=== PATIENT | female | born 1995 | race Caucasian/White ===

== ENCOUNTER 2016-08-14 17:30 | Emergency (ER) | payer BC ==
[2016-08-14 17:45] VITALS: BP 121/70
--- NOTE | 2016-08-14 18:34 | UC ---
Ear Complaint HPI - HPI Summary HPI Summary: 21 YO FEMALE WITH LEFT OTALGIA SINCE THIS AM SINUS CONGESTION X DAYS HX OM PETs CHILD - History of Current Complaint Chief Complaint: UCEar Stated Complaint: EAR ACHE Time Seen by Provider: 08/14/16 18:28 Hx Obtained From: Patient Hx Last Menstrual Period: 07/23/16 Onset/Duration: Gradual Onset, Lasting Hours Severity Initially: Mild Severity Currently: Mild Pain Intensity: 4 Pain Scale Used: 0-10 Numeric Associated Signs/Symptoms: Positive: Hearing Loss, URI Symptoms Related History: Prior ENT Surgery - Allergies/Home Medications Allergies/Adverse Reactions: Allergies Allergy/AdvReac Type Severity Reaction Status Date / Time No Known Allergies Allergy Verified 08/14/16 17:40 PMH/Surg Hx/FS Hx/Imm Hx Previously Healthy: Yes - Surgical History Surgical History: Yes Surgery Procedure, Year, and Place: tubes in ears as child - Family History Known Family History: Positive: Hypertension, Diabetes - Social History Alcohol Use: None Substance Use Type: None Smoking Status (MU): Never Smoked Tobacco - Immunization History Most Recent Influenza Vaccination: fall 2015 Vaccination Up to Date: Yes Review of Systems Constitutional: Negative Skin: Negative Eyes: Negative ENT: Ear Ache, Nasal Discharge Respiratory: Negative Cardiovascular: Negative Gastrointestinal: Negative Genitourinary: Negative Motor: Negative Neurovascular: Negative Musculoskeletal: Negative Neurological: Negative Psychological: Negative All Other Systems Reviewed And Are Negative: Yes Physical Exam Triage Information Reviewed: Yes Appearance: Well-Appearing, No Pain Distress, Well-Nourished Vital Signs: Initial Vital Signs Temp 98.3 F 08/14/16 17:40 Pulse 72 08/14/16 17:40 Resp 16 08/14/16 17:40 BP 121/70 08/14/16 17:40 Pulse Ox 100 08/14/16 17:40 Eye Exam: Normal Eyes: Positive: Conjunctiva Clear ENT: Positive: Nasal congestion, Nasal drainage, TM bulging - L, TM red - L. Negative: Hearing grossly normal - DECREASED HEARING LEFT EAR, Tonsillar exudate , Trismus, Muffled/hoarse voice Neck: Positive: Supple, Nontender Respiratory: Positive: Chest non-tender, Lungs clear, Normal breath sounds Cardiovascular: Positive: RRR, No Murmur, Pulses Normal Musculoskeletal: Positive: ROM Intact, No Edema Neurological Exam: Normal Neurological: Positive: Alert Psychological Exam: Normal Skin Exam: Normal Ear Complaint Course/Dx - Differential Dx/Diagnosis Provider Diagnoses: LEFT OTITIS MEDIA Discharge - Discharge Plan Condition: Stable Disposition: HOME Prescriptions: Amoxicillin SUSP* [Amoxicillin 400 MG/5 ML SUSP*] 800 mg PO BID #200 bottle Patient Education Materials: Otitis Media (ED) Referrals: Reji Don MD [Primary Care Provider] - 3 Days (IF NOT IMPROVED) Additional Instructions: IF MAY TAKE A COUPLE OF WEEKS FOR YOUR HEARING TO RETURN TO NORMAL TYLENOL OR ADVIL IF NEEDED FOR PAIN
== END 2016-08-14 18:40 | disposition home or self-care (01) ==
LOC: UCEAST 17:30
DX: H66.92 Otitis media, unspecified, left ear (principal)
CPT/HCPCS: 99212; G0463

== ENCOUNTER 2017-12-17 10:16 | Emergency (ER) | payer BC ==
[2017-12-17 10:25] VITALS: BP 118/86
--- NOTE | 2017-12-17 10:51 | ED ---
Throat Pain/Nasal Congestion - HPI Summary HPI Summary: Patient presents with URI symptoms 1.5 weeks. She reports it started as a sore throat and then moved into her left ear. Had left ear pain which has resolved however sore throat persists. She now feels a cough moving into her chest. Denies fevers, chills, nausea, vomiting, rash, headache or neck stiffness. Her son was diagnosed with strep prior to her symptoms starting. She's been trying to treat this with Cepacol and as a result has developed some loose stools. Otherwise appetite is good but it is painful to swallow. She does not like to take medication and has not tried acetaminophen or ibuprofen for her throat pain. She has tried salt gargles in the morning which seems to help. - History of Current Complaint Chief Complaint: UCRespiratory Time Seen by Provider: 12/17/17 10:29 Hx Obtained From: Patient - Allergies/Home Medications Allergies/Adverse Reactions: Allergies Allergy/AdvReac Type Severity Reaction Status Date / Time No Known Allergies Allergy Verified 12/17/17 10:25 Home Medications: Home Medications NK [No Home Medications Reported] 12/17/17 [History Confirmed 12/17/17] PMH/Surg Hx/FS Hx/Imm Hx Previously Healthy: Yes EENT History: Reports: Other - recurrent ear issues - h/o myringotomy as a child - Surgical History Surgery Procedure, Year, and Place: tubes in ears as child Infectious Disease History: No Infectious Disease History: Denies: Traveled Outside the [place] in Last 30 Days - Family History Known Family History: Positive: Hypertension, Diabetes - Social History Occupation: Employed Full-time Lives: With Family Alcohol Use: Occasionally Hx Substance Use: No Substance Use Type: Reports: None Hx Tobacco Use: No Smoking Status (MU): Never Smoked Tobacco Review of Systems Constitutional: Negative Negative: Fever, Chills, Fatigue Negative: Drainage, Erythema Positive: Sore Throat, Nasal Discharge - PND Cardiovascular: Negative Positive: Cough - mild. Negative: Shortness Of Breath Gastrointestinal: Negative Positive: no symptoms reported Musculoskeletal: Negative Skin: Negative Neurological: Negative Psychological: Normal All Other Systems Reviewed And Are Negative: Yes Physical Exam Triage Information Reviewed: Yes Vital Signs On Initial Exam: Initial Vitals Temp Pulse Resp BP Pulse Ox 97.6 F 77 18 118/86 100 12/17/17 10:22 12/17/17 10:22 12/17/17 10:22 12/17/17 10:22 12/17/17 10:22 Vital Signs Reviewed: Yes Appearance: Positive: Well-Appearing, No Pain Distress, Well-Nourished Skin: Positive: Warm, Skin Color Reflects Adequate Perfusion, Dry - no rash Head/Face: Positive: Normal Head/Face Inspection - SInuses NTTP Eyes: Positive: Normal, EOMI, Conjunctiva Clear. Negative: Conjunctiva Inflammed, Discharge ENT: Positive: Hearing grossly normal, Pharyngeal erythema - mild erythema, tonsils +2-3, cryptic, scant exudate, Nasal congestion, TMs normal, Tonsillar swelling, Uvula midline. Negative: Trismus, Muffled voice, Hoarse voice, Sinus tenderness Dental: Negative: Abscess @ Neck: Positive: Supple, Nontender, Enlarged Nodes @ - "FEELS BETTER" WHEN THESE ARE PALPATED Respiratory/Lung Sounds: Positive: Clear to Auscultation, Breath Sounds Present. Negative: Rales, Rhonchi, Stridor, Tracheal Deviation, Wheezes Cardiovascular: Positive: Normal, RRR, S1, S2. Negative: Murmur, Rub Abdomen Description: Positive: Nontender, No Organomegaly, Soft Bowel Sounds: Positive: Present Musculoskeletal: Positive: Normal, Strength/ROM Intact Neurological: Positive: Normal, Sensory/Motor Intact, Alert, Oriented to Person Place, Time, CN Intact II-III Psychiatric: Positive: Normal Diagnostics - Vital Signs Vital Signs Temp Pulse Resp BP Pulse Ox 12/17/17 10:22 97.6 F 77 18 118/86 100 - Laboratory Lab Statement: Any lab studies that have been ordered have been reviewed, and results considered in the medical decision making process. EENT Course/Dx - Course Course Of Treatment: Rapid strep (-). Suspect viral URI w/ PND. Will offer supportive care. If persists, may see PCP for further evaluation, possibly mono testing although low suspicion here today. Reviewed danger s/sx of when to return to ED. Pt agrees w/ plan. - Diagnoses Provider Diagnoses: URI, acute Discharge - Sign-Out/Discharge Documenting (check all that apply): Patient Departure All imaging exams completed and their final reports reviewed: No Studies - Discharge Plan Condition: Stable Disposition: HOME Patient Education Materials: Upper Respiratory Infection (ED), Postnasal Drip ( DC) Referrals: Reji Don MD [Primary Care Provider] - Additional Instructions: You appear to have a viral URI. There may be a component of allergies as well. You were referred to ENT for recurrent ear infections - followup as directed. In the meantime, you may try the following to aid in comfort of your symptoms: Nasal wash (netti pot or saline spray) to reduce post nasal drip causing sore throat and cough Salt water throat gargles 2 x day Drink you body weight in ounces of water every day Sleep 8+ hours per night Avoid Dairy and sugar Hot herbal/decaf tea with lemon & honey Chicken broth (preferably organic, free range chicken) Keep home temperature at 68F or less to reduce dryness Use cough drops/throat lozenges Try a facial steam with or without eucalyptus essential oil or Tee's Vapor rub for congestion Avoid smoke, candles, perfumes, colognes, scented soaps/detergents , air fresheners and cleaning chemicals as these can cause airway irritation and trigger coughing Additionally for throat pain, you may try acetaminophen and/or ibuprofen. If mucous continues to be an issue you may also try an antihistamine before bed to reduce post nasal drip over night (ie. benadryl). Consider starting a multivitamin *If worse, follow-up with PCP *If difficulty breathing or swallowing, go to the ED - Billing Disposition and Condition Condition: STABLE Disposition: Home
== END 2017-12-17 11:07 | disposition home or self-care (01) ==
LOC: UCEAST 10:16
DX: J06.9 Acute upper respiratory infection, unspecified (principal)
CPT/HCPCS: 87651; 99211; G0463

== ENCOUNTER 2018-10-20 09:37 | Emergency (ER) | payer BC ==
[2018-10-20 10:39] VITALS: BP 104/70
--- NOTE | 2018-10-20 10:44 | UC ---
Abdominal Pain Female HPI - HPI Summary HPI Summary: Today was walking a dog that pulled hard and she fell. L upper leg pain near lateral aspect of L knee. Pain w/ bearing weight but able to walk. Feels slight instability but has been using crutches which helps. Does not know any bruising or swelling. - History of Current Complaint Chief Complaint: UCLowerExtremity Stated Complaint: LEG INJURY Time Seen by Provider: 10/20/18 09:41 Hx Obtained From: Patient Hx Last Menstrual Period: 11/23/17 Onset/Duration: Sudden Onset Pain Intensity: 0 Pain Scale Used: 0-10 Numeric Aggravating Factor(s): Movement Alleviating Factor(s): Position Allergies/Adverse Reactions: Allergies Allergy/AdvReac Type Severity Reaction Status Date / Time No Known Allergies Allergy Verified 10/20/18 10:39 Home Medications: Home Medications Vitamin TAB* 1 tab PO DAILY 10/20/18 [History Confirmed 10/20/18] PMH/Surg Hx/FS Hx/Imm Hx - Additional Past Medical History Additional PMH: Previously Healthy: Yes - Surgical History Surgical History: Yes Surgery Procedure, Year, and Place: tubes in ears as child - Family History Known Family History: Positive: Hypertension, Diabetes - Social History Alcohol Use: Occasionally Substance Use Type: None Smoking Status (MU): Never Smoked Tobacco - Immunization History Most Recent Influenza Vaccination: fall 2015 Vaccination Up to Date: Yes Review of Systems All Other Systems Reviewed And Are Negative: Yes Constitutional: Negative: Fever, Chills Skin: Negative: Bruising, Other - DENIES REDNESS Respiratory: Positive: Negative Cardiovascular: Positive: Negative Musculoskeletal: Positive: Arthralgia - L KNEE/UPPER LEG PAIN, Calf Tenderness - UPPER, Decreased ROM. Negative: Edema, Myalgia Neurological: Negative: Weakness, Paresthesia, Numbness Physical Exam Triage Information Reviewed: Yes Appearance: Well-Appearing, Other: - HAS CRUTCHES AND WHEELCHAIR Vital Signs: Initial Vital Signs Temp 97.9 F 10/20/18 10:31 Pulse 94 10/20/18 10:31 Resp 16 10/20/18 10:31 BP 104/70 10/20/18 10:31 Pulse Ox 99 10/20/18 10:31 Vital Signs Reviewed: Yes Musculoskeletal: Positive: Strength Intact - L KNEE, ROM Intact - L KNEE, No Edema - LOWER EXTREMITY Neurological: Positive: Alert, Muscle Tone Normal Skin: Negative: Other - NO BRUISING NOTED Abd Pain Female Course/Dx - Course Course Of Treatment: Left knee strain and feeling some instability after a fall while she was walking a dog that pulled her. Able to consult with Dr. Mitchell and it was thought after he helped evaluate her that calf rest with a CAM boot and staying off her feet with crutches would be helpful until she sees Ortho. It was not thought that there was a fx so no imaging, her being complicates things. - Differential Dx/Diagnosis Differential Diagnosis: Other Provider Diagnosis: Left knee pain Discharge - Sign-Out/Discharge Documenting (check all that apply): Patient Departure All imaging exams completed and their final reports reviewed: No Studies - Discharge Plan Condition: Good Disposition: HOME Patient Education Materials: Knee Pain (ED) Referrals: Juarez Mitchell MD [Emergency Provider] - Additional Instructions: Please follow up with Orthopedics to be evaluated for the pain and instability. It is good to remain off your feet using the crutches. Tylenol can be taken for the pain. - Billing Disposition and Condition Condition: GOOD Disposition: Home - Attestation Statements Provider Attestation: I was available for consult. This patient was seen by the WINTER. I saw and examined the patient. Pain is mainly reported in the lateral aspect of the proximal calf. Upon exam she has no significant tenderness even upon deep palpation in the area of pain. Has full range of motion at knee and ankle. She was able to be her weight on the left side and walk. Symptoms appear consistent with proximal left calf strain after she was pulled by the dog.We discussed conservative management with cam boot/crutches and hold off imaging since she is and follow up with orthopedics. She expressed understanding. -Juarez Mitchell MD
== END 2018-10-20 11:30 | disposition home or self-care (01) ==
LOC: UCEAST 09:37
DX: M25.562 Pain in left knee (principal)
CPT/HCPCS: 99212; G0463

== ENCOUNTER 2019-01-18 09:24 | Inpatient (IN) | payer BC ==
[2019-01-18] MEDS ORDERED: Buffered Lidocaine 1% SYRIN* 1 ML/SYRINGE INTRADERM ONE (10:10)
[2019-01-18] MEDS ORDERED: Lactated Ringers 1000 ML Bag* 1,000 ML IV ONE ×2 (10:10→19:29)
--- NOTE | 2019-01-18 10:20 | HP ---
General Information - Reason for Visit Pt here for elective term induction of labor due to prolonged prodromal labor. - General Information Maternal Age: 24 Grav: 3 Para: 1 SAB: 1 IEA: 0 Estimated Due Date: 01/17/19 Determined By: LMP Maternal Blood Type and Rh: A Positive - Results this Serology/RPR Result: Non-Reactive Rubella Result: Immune HBsAg Result: Negative HIV Result: Negative GBS Culture Result: Negative Past Medical History Delivery History: See Records Pertinent Past Medical History: Non-Contributory Pertinent Past Surgical History: None Pertinent Family History: Non-Contributory - Antepartal Records Antepartal Records: Reviewed, Uncomplicated Review of Systems Constitutional: Comfortable CV Complaint: No Respiratory: Shortness of Breath: No Gastrointestinal: No Nausea/Vomiting, Normal Bowel Movement Genitourinary: No Dysuria, No Bleeding, No Leaking Fluid Musculoskeletal: No Epigastric Pain, Contractions Neurological: No Headache, No Visual Changes Movement: Normal Exam Allergies/Adverse Reactions: Allergies No Known Allergies Allergy (Verified 01/18/19 07:47) T-98.2, P-98, R-20, BP- 110/74, O2-97% - Measurements Height: 5 ft 4 in Weight: 83.007 kg Weight in lbs: 183.724068 Body Mass Index (BMI): 31.4 Pre- Weight: 68.039 kg Weight Gained This : 33 lbs and 0 ozs - Exam Breast: Breast Exam Deferred CVA: No CVA Tenderness Extremities: Edema - trace pedal edema Heart: Normal Rhythm/Heart Sounds HEENT: No Significant Findings Lungs: Clear Bilaterally Rectal: Rectal Exam Deferred Reflexes: DTR 2+ Thyroid: No Thyromegaly - Abdominal Exam Abdomen Exam: Non-Tender, Fundal Height Consistent with Dates - Ultrasound/Biophysical Profile Ultrasound Status: Not Done Targeted Exam Findings See L&D Outpatient Visit Provider Note for Findings: N/A Estimated Weight: 7.5# Cervical Exam: 2cm Effacement: 50% Station: -2 Presenting Part: Vertex Membrane Status: Intact Bleeding/Discharge: None EFM Findings - External Monitor Findings Baseline Heart Rate: 135 External Monitor Findings: Accelerations Present, No Pattern of Variable or Late Decelerations, Variability Moderate, Baseline Stable Contractions: None Assessment/Plan - Assessment 23 year old at 40 1/7 weeks gestation, here for elective IOL in context of prolonged prodromal labor - Plan Plan: Induction, Admit - Anticipate Vaginal Delivery - Date/Time of Admission Date of Admission: 01/18/19 Time of Admission: 10:08
[2019-01-18 10:56] LABS: ABS Eosinophils 0.1 10^3/ul (0-0.6); ABS Lymphocytes 2.1 10^3/ul (1.0-4.8); ABS Monocytes 0.7 10^3/ul (0-0.8); ABS Neutrophils 8.8 10^3/ul (1.5-7.7); Eosinophil % 0.7 %; Hematocrit 41 % (35-47); Hemoglobin 13.5 g/dL (12.0-16.0); Lymphocyte % 18.1 %; Mean Corpuscular HGB Conc 33 g/dL (31-36); Mean Corpuscular Hemoglobin 29 pg (27-31); Mean Corpuscular Volume 85 fL (80-97); Mean Platelet Volume 8.9 fL (7.4-10.4); Platelet Count 289 10^3/uL (150-450); Red Blood Count 4.75 10^6 /uL (3.70-4.87); Red Cell Distribution Width 14 % (10-15); White Blood Count 11.7 10^3/uL (3.5-10.8)
[2019-01-18] MEDS ORDERED: Oxytocin in LR* 20 UNITS/1,000 ML BAG IVPB SCH (11:00)
[2019-01-18] MEDS ORDERED: Lactated Ringers 1000 ML Bag* 1,000 ML IV SCH ×3 (11:00→20:00)
[2019-01-18 11:10] LABS: Urine Benzodiazepine Screen None Detected (None Detect); Urine Opiates Screen None Detected (None Detect)
--- NOTE | 2019-01-18 12:53 | PN ---
Progress Note - Progress Note Date of Service: 01/18/19 SOAP: Subjective: Pt comfortable, reports ctx feel more frequent, but not stronger. Objective: FHR: Baseline 125/ moderate variability/ + accels/ no decels UCs: 2-4 minutes, mild Pitocin at 6 mu/min Assessment: 24 year old at 40 1/7 weeks gestation undergoing elective IOL. Plan: Continue Pitocin IOL. Recheck cervix in a few hours or sooner as needed.
--- NOTE | 2019-01-18 15:09 | PN ---
Progress Note - Progress Note Date of Service: 01/18/19 SOAP: Subjective: Pt feeling ctx stronger, ambulating in halls. Coping well. Objective: Pitocin at 8mu/min FHR: Baseline 135/ moderate variability/ + accels, tracing intermittent d/t pt ambulation UCs: 2-3 minutes, mild to moderate BP: 99/66, T: 98.0 Assessment: Pt appears to be getting into more active labor pattern. Membranes intact. No evidence of acidemia. Plan: Continue Pitocin augmentation. Recheck in 2-3 hours or PRN.
--- NOTE | 2019-01-18 17:17 | PN ---
Progress Note - Progress Note Date of Service: 01/18/19 SOAP: Subjective: Pt much more uncomfortable, coping well Objective: Cervix: 4cm/ 80%/ -1 FHR: Baseline 135/ moderate variability/ + accels/ no decels UCs: 2-3 minutes Pitocin reduced from 8 to 6 Assessment: Pt getting into active labor, making good progress. No evidence of acidemia or chorioamnionitis. Plan: Continue Pitocin induction. Discussed options for pain relief, pt elects to try the tub at this time. Anticipate progression to .
--- NOTE | 2019-01-18 17:45 | PN ---
Progress Note - Progress Note Date of Service: 01/18/19 Note: Pt tried tub, did not find it helpful. Requests to try nitrous oxide. Risks and benefits discussed with pt. Order placed.
[2019-01-18] MEDS ORDERED: OBEPIDURAL* 250 ML EPIDURAL ONE (18:36)
--- NOTE | 2019-01-18 18:54 | PN ---
Progress Note - Progress Note Date of Service: 01/18/19 Note: Pt reports nitrous oxide not sufficient for pain management. Requests epidural. After reviewing risks and benefits of epidural, anesthesiologist paged. Dr. Durham at bedside at this time to place epidural.
[2019-01-18] MEDS ORDERED: Phenylephrine 40 MCG/ML SYRINGE ONE (19:04)
[2019-01-18] MEDS ORDERED: Famotidine TAB* 20 MG PO PRN (19:29)
[2019-01-18] MEDS ORDERED: Sodium Citrate/Citric Acid* 15 ML UDC PO PRN (19:29)
[2019-01-18] MEDS ORDERED: Phenylephrine 40 MCG/ML SYRINGE IV PUSH PRN ×2 (19:29)
[2019-01-18] MEDS ORDERED: Lactated Ringers 1000 ML Bag* 500 ML IV PRN ×2 (19:29)
[2019-01-18] MEDS ORDERED: OBEPIDURAL* 250 ML EPIDURAL SCH (20:00)
--- NOTE | 2019-01-18 21:44 | PN ---
Progress Note - Progress Note Date of Service: 01/18/19 SOAP: Subjective: Pt comfortable with epidural. Resting in bed, and family at bedside. Objective: SROM at 2100 to clear fluid FHR: had some late decelerations secondary to maternal hypotension following epidural initiation; since then has improved. Current baseline 135/ moderate variability/ no accels/ no decels UCs: Q 2-3 minutes Pitocin turned off during epidural placement, has not been restarted Assessment: Pt appears to be making good progress. Comfortable with epidural. FHR Category I but has not had any accelerations in a while. Plan: Try position changes to see if improved FHR reactivity. Restart Pitocin as needed if ctx space out or progress stalls. Anticipate .
[2019-01-19] MEDS ORDERED: Witch Hazel PAD* JAR TOPICAL PRN (01:01)
[2019-01-19] MEDS ORDERED: Dibucaine 1% 28.35 GM TUBE PR PRN (01:01)
[2019-01-19] MEDS ORDERED: Glycerin ADULT SUPP PR PRN (01:01)
[2019-01-19] MEDS ORDERED: Lactated Ringers 1000 ML Bag* 1,000 ML IV SCH (02:00)
[2019-01-19] MEDS ORDERED: Oxytocin in LR* 20 UNITS/1,000 ML BAG IVPB SCH (02:00)
[2019-01-19] MEDS: Acetaminophen TAB* 325 MG PO PRN ×3 (08:45→22:57)
[2019-01-19] MEDS: Ibuprofen TAB* 600 MG PO PRN ×2 (08:45→20:23)
[2019-01-19] MEDS: Docusate CAP* 100 MG PO SCH ×3 (08:45→23:08)
[2019-01-19] MEDS ORDERED: Tetan/Diph/Pertus SYR(Tdap)* 0.5 ML SYR(BOOSTRIX) use SYR IM ONE (09:00)
--- NOTE | 2019-01-19 19:27 | PROCNOTE ---
[facility] OB: Delivery Note - Delivery A Date of : 01/19/19 Time of : 00:38 [place] Sex: Female Weight at : 3.135 kg Score 1 Minute: 9 Score 5 Minutes: 9 Gestational Age in Weeks and Days at Delivery: 40 Weeks and 2 Days Delivery Method: Spontaneous Vaginal Labor: Induced Did Patient attempt ?: N/A, No Previous Amniotic Fluid: Clear Estimated Blood Loss: 300 Anesthesia/Analgesia: CEI for Labor, Nitrous-Labor - Nursery Level of Nursery: Regular/Bedside - Perineum Perineal Injury: None/Intact Perineal Repair: None - Events Delivery Events of Note: Pitocin During Labor - Additional Delivery Notes Additional Delivery Notes: Pt admitted to L&D for elective term IOL in the context of prolonged prodromal labor. Cervix favorable so induction initiated with Pitocin. Pt made steady progress. Initially used tub, position changes, and nitrous oxide for pain relief before requesting and receiving an epidural with good pain relief. Pt eventually came to full dilation and was coached to push. Pt pushed with good effort and rapid descent. soon brought to and pt coached through slow, controlled delivery of head. Shoulders then followed without difficulty. placed on maternal abdomen with vigorous cry and good tone, HR> 100. After cord pulsation ceased cord clamped x2 and cut by infant's father. Placenta soon followed, spontaneous and carmencita side with gentle cord traction. Bleeding minimal. Pitocin increased to 150 cc/hr following delivery of placenta. Examination of the perineum found it to be intact. Pt and infant stable at this time, anticipate normal course.
[2019-01-20] MEDS: Ibuprofen TAB* 600 MG PO PRN ×3 (03:34→19:38)
[2019-01-20 05:42] LABS: ABS Eosinophils 0.2 10^3/ul (0-0.6); ABS Lymphocytes 3.1 10^3/ul (1.0-4.8); ABS Neutrophils 8.3 10^3/ul (1.5-7.7); Eosinophil % 1.3 %; Hematocrit 32 % (35-47); Hemoglobin 10.7 g/dL (12.0-16.0); Lymphocyte % 24.4 %; Mean Corpuscular HGB Conc 34 g/dL (31-36); Mean Corpuscular Hemoglobin 29 pg (27-31); Mean Corpuscular Volume 86 fL (80-97); Mean Platelet Volume 8.5 fL (7.4-10.4); Platelet Count 204 10^3/uL (150-450); Red Blood Count 3.65 10^6 /uL (3.70-4.87); Red Cell Distribution Width 14 % (10-15); White Blood Count 12.6 10^3/uL (3.5-10.8)
[2019-01-20] MEDS: Acetaminophen TAB* 325 MG PO PRN ×3 (08:03→21:18)
[2019-01-20] MEDS ORDERED: Ferrous Gluconate TAB* 324 MG TAB PO SCH (09:00)
[2019-01-20] MEDS: Docusate CAP* 100 MG PO SCH ×3 (12:26→21:16)
[2019-01-21] MEDS: Acetaminophen TAB* 325 MG PO PRN ×2 (04:26→09:30)
[2019-01-21] MEDS: Ibuprofen TAB* 600 MG PO PRN (04:26)
[2019-01-21 07:45] VITALS: BP 95/58
[2019-01-21] MEDS: Docusate CAP* 100 MG PO SCH (09:30)
== END 2019-01-21 12:54 | disposition home or self-care (01) | DRG 560 ==
LOC: MCHOBOUT 09:24 → MCHOB 10:08
PROVIDERS: ADMIT Midwife; ATTEND Midwife
PROC: 10E0XZZ Delivery of Products of Conception, External Approach (ICD-10-PCS; principal; 2019-01-19)
PROC: 3E033VJ Introduction of Other Hormone into Peripheral Vein, Percutaneous Approach (ICD-10-PCS; 2019-01-19)
DX: O48.0 Post-term pregnancy (principal); O63.9 Long labor, unspecified; Z37.0 Single live birth; Z3A.40 40 weeks gestation of pregnancy
CPT/HCPCS: 36415; 80307; 85025; 86850; 86900; 86901; 90715; A9270-GY

== ENCOUNTER 2020-12-22 09:13 | Inpatient (IN) ==
[2020-12-22] MEDS ORDERED: Buffered Lidocaine 1% SYRIN 1 ml INTRADERM ONE (09:57)
[2020-12-22] MEDS ORDERED: Lactated Ringers 1000 ml BAG 1,000 ML IV ONE (09:57)
[2020-12-22] MEDS ORDERED: Lactated Ringers 1000 ml BAG 1,000 ML IV SCH (10:00)
[2020-12-22 10:44] LABS: ABS Eosinophils 0.1 10^3/ul (0-0.6); ABS Lymphocytes 1.8 10^3/ul (1.0-4.8); ABS Monocytes 0.7 10^3/ul (0-0.8); ABS Neutrophils 10.3 10^3/ul (1.5-7.7); Eosinophil % 0.5 %; Hematocrit 37 % (35-47); Hemoglobin 12.2 g/dL (12.0-16.0); Lymphocyte % 13.9 %; Mean Corpuscular HGB Conc 33 g/dL (31-36); Mean Corpuscular Hemoglobin 27 pg (27-31); Mean Corpuscular Volume 82 fL (80-97); Mean Platelet Volume 9.9 fL (7.4-10.4); Platelet Count 277 10^3/uL (150-450); Red Blood Count 4.47 10^6 /uL (3.70-4.87); Red Cell Distribution Width 14 % (10-15); White Blood Count 12.9 10^3/uL (3.5-10.8)
[2020-12-22 11:03] LABS: Urine Collection Time OB 24 hr
[2020-12-22 11:09] LABS: Albumin 2.9 g/dL (3.2-5.2); Calcium 7.9 mg/dL (8.6-10.3); EGFR African American 166.4 (>60); EGFR Non-African American 137.6 (>60); Globulin 2.9 g/dL (2-4); Potassium 3.9 mmol/L (3.5-5.0); Total Bilirubin 0.3 mg/dL (0.2-1.0); Total Protein 5.8 g/dL (6.4-8.9)
[2020-12-22 11:41] LABS: Urine Benzodiazepine Screen None Detected (None Detect); Urine Cannabinoids Screen None Detected (None Detect); Urine Opiates Screen None Detected (None Detect)
[2020-12-22 11:43] LABS: Urine Total Volume OB 1600 mL
[2020-12-22 12:05] LABS: Ur TP Concentration Obstetric 18 mg/dL
[2020-12-22 12:37] LABS: Urine Appearance Cloudy; Urine Bacteria 1+ (Absent); Urine Bilirubin Negative (Negative); Urine Blood Negative (Negative); Urine Color Amber; Urine Glucose Negative (Negative); Urine Ketones Negative (Negative); Urine Nitrite Negative (Negative); Urine Protein 1+(30 mg/dL) (Negative); Urine Red Blood Cell Absent (Absent); Urine Specific Gravity 1.021 (1.002-1.030); Urine Sperm Present (Absent); Urine Squamous Epithelial Cell Present (Absent); Urine Urobilinogen Negative (Negative); Urine White Blood Cell 3+(>20/hpf) (Absent)
[2020-12-22] MEDS ORDERED: Dibucaine 1% OINT 28.35 GM TUBE PR PRN (15:19)
[2020-12-22] MEDS ORDERED: Tetan/Diph/Pertus SYR(Tdap) 0.5 ML SYR(BOOSTRIX) use SYR contains LATEX IM ONE (15:19)
[2020-12-22] MEDS ORDERED: Glycerin ADULT 2.4 gm SUPP PR PRN (15:19)
[2020-12-22] MEDS ORDERED: Witch Hazel PAD JAR TOPICAL PRN (15:19)
[2020-12-23 06:17] LABS: ABS Lymphocytes 1.7 10^3/ul (1.0-4.8); ABS Monocytes 1.1 10^3/ul (0-0.8); ABS Neutrophils 13.7 10^3/ul (1.5-7.7); Eosinophil % 0.2 %; Hematocrit 31 % (35-47); Hemoglobin 10.3 g/dL (12.0-16.0); Lymphocyte % 10.5 %; Mean Corpuscular HGB Conc 33 g/dL (31-36); Mean Corpuscular Hemoglobin 27 pg (27-31); Mean Corpuscular Volume 82 fL (80-97); Mean Platelet Volume 9.7 fL (7.4-10.4); Platelet Count 223 10^3/uL (150-450); Red Blood Count 3.83 10^6 /uL (3.70-4.87); Red Cell Distribution Width 14 % (10-15); White Blood Count 16.7 10^3/uL (3.5-10.8)
[2020-12-23 12:31] VITALS: BP 106/67
[2020-12-23] MEDS ORDERED: Lidocaine 1% MPF 5 ML VIAL ONE (14:35)
== END 2020-12-23 17:20 | disposition home or self-care (01) | DRG 560 ==
LOC: MCHOBOUT 09:13 → MCHOB 09:57
PROVIDERS: ADMIT Midwife; ATTEND Midwife